=== PATIENT | male | born 1965 | race Caucasian/White ===

== ENCOUNTER 2018-01-26 11:54 | Emergency (ER) | payer OTHER ==
[~2018-01-26] VITALS: Ht 185.4 cm; Wt 99.1 kg
[2018-01-26 11:57] VITALS: Ht 185.4 cm; Wt 99.1 kg
[2018-01-26] MEDS ORDERED: SOLARAZE100 GM TP (11:59)
[2018-01-26] MEDS ORDERED: ULTRAM50 MG PO (11:59)
[2018-01-26] MEDS ORDERED: ADVIL200 MG PO (12:00)
[2018-01-26 12:32] LABS: BASOPHILS 0.3 % (0-2); EOSINOPHILS 1.6 % (0-7); HEMATOCRIT 46.8 % (42.0-54.0); HEMOGLOBIN 16.3 g/dL (13.5-17.5); LYMPHOCYTES 25.3 % (15-50); MCH 31.3 pg (26.0-34.0); MCHC 34.8 g/dL (31.0-37.0); MEAN PLATELET VOLUME 9.9 fL (7.4-10.4); MONOCYTES 6.9 % (2-11); NEUTROPHILS 65.9 % (40-80); PLATELET COUNT 177 10x3/uL (130-400); WBC 9.5 10x3/uL (4.8-10.8)
[2018-01-26 12:53] LABS: ALBUMIN 4.1 g/dL (3.4-5.0); ALKALINE PHOSPHATASE 80 U/L (46-116); ALT (SGPT) 29 U/L (10-68); BILIRUBIN - TOTAL 0.31 mg/dL (0.2-1.3); CALC OSMOLALITY 279 mosm/kg (275-300); CALCIUM 8.8 mg/dL (8.5-10.1); CHLORIDE - SERUM 105 mmol/L (98-107); GLUCOSE 89 mg/dL (74-106); POTASSIUM - SERUM 4.1 mmol/L (3.5-5.1); PROTEIN - SERUM 7.4 g/dL (6.4-8.2); SODIUM 140 mmol/L (136-145); UREA NITROGEN 17 mg/dL (7-18); eGFR NON AFRICAN AMERICAN 83 mL/min (90-120)
[2018-01-26 13:05] LABS: CKMB 0.9 U/L (0.0-3.6); CREATINE KINASE 73 UL (21-232)
[2018-01-26 13:07] LABS: TROPONIN-I < 0.017 ng/mL (0.000-0.060)
[2018-01-26 13:33] LABS: APTT 31.9 SECONDS (22.8-39.4); INR 0.99 (0.85-1.17); PROTIME 12.7 SECONDS (11.6-15.0)
[2018-01-26] MEDS ORDERED: NORVASC5 MG PO (13:55)
[2018-01-26 14:49] VITALS: BP 126/74
== END 2018-01-26 14:51 | disposition home or self-care (01) ==
LOC: D.ER 11:54
PROVIDERS: Emergency Medicine
DX: R51 Headache (principal); I10 Essential (primary) hypertension; F17.200 Nicotine dependence, unspecified, uncomplicated; I45.10 Unspecified right bundle-branch block

== ENCOUNTER 2020-09-17 16:18 | Emergency (ER) | payer OTHER ==
[~2020-09-17] VITALS: Ht 185.4 cm; Wt 99.1 kg
[~2020-09-17 16:18] MED LIST: ADVIL200 MG PO; NORVASC5 MG PO; SOLARAZE100 GM TP; ULTRAM50 MG PO
[2020-09-17 16:34] VITALS: Ht 185.4 cm; Wt 99.1 kg
[2020-09-17 17:55] LABS: BASOPHILS 0.5 % (0-2); EOSINOPHILS 1.8 % (0-7); HEMOGLOBIN 15.3 g/dL (13.5-17.5); IMMATURE GRANULOCYTES 0.2 % (0-5); LYMPHOCYTE ABS# 2.51 10x3/uL (1.32-3.57); LYMPHOCYTES 30.2 % (15-50); MCH 30.5 pg (26.0-34.0); MCV 89.6 fL (80.0-100.0); MEAN PLATELET VOLUME 9.9 fL (7.4-10.4); MONOCYTES 9.2 % (2-11); NEUTROPHIL ABS# 4.82 10x3/uL (1.78-5.38); NEUTROPHILS 58.1 % (40-80); PLATELET COUNT 202 10x3/uL (130-400); RBC 5.02 10x6/uL (4.20-6.10); RDW 12.2 % (11.5-14.5); WBC 8.3 10x3/uL (4.8-10.8)
[2020-09-17 17:59] LABS: APTT 27.6 SECONDS (22.8-39.4); INR 0.93 (0.85-1.17); PROTIME 11.5 SECONDS (11.6-15.0)
[2020-09-17 18:00] LABS: CALC OSMOLALITY 284 mosm/kg (275-300); CALCIUM 9.1 mg/dL (8.5-10.1); CARBON DIOXIDE 30.9 mmol/L (21.0-32.0); CHLORIDE - SERUM 105 mmol/L (98-107); CREATININE - SERUM 1.2 mg/dL (0.6-1.3); GLUCOSE 86 mg/dL (74-106); POTASSIUM - SERUM 4.9 mmol/L (3.5-5.1); SODIUM 143 mmol/L (136-145); UREA NITROGEN 16 mg/dL (7-18); eGFR NON AFRICAN AMERICAN 66 mL/min (90-120)
[2020-09-17 18:15] LABS: ALKALINE PHOSPHATASE 115 U/L (30-120); ALT (SGPT) 72 U/L (10-68); BILIRUBIN - TOTAL 0.21 mg/dL (0.2-1.3); CKMB 0.8 U/L (0.0-3.6); CREATINE KINASE 65 UL (21-232); MAGNESIUM - SERUM 2.4 mg/dL (1.8-2.4); PROTEIN - SERUM 7.1 g/dL (6.4-8.2)
[2020-09-17 18:23] LABS: TROPONIN-I < 0.017 ng/mL (0.000-0.060)
[2020-09-17 19:58] VITALS: BP 139/79
== END 2020-09-17 20:28 | disposition home or self-care (01) ==
LOC: D.ER 16:18
PROVIDERS: Emergency Medicine
DX: R55 Syncope and collapse (principal); R11.0 Nausea

== ENCOUNTER 2020-11-26 12:36 | Emergency (ER) | payer OTHER ==
[~2020-11-26] VITALS: Ht 185.4 cm; Wt 104.5 kg
[2020-11-26 12:39] VITALS: Ht 185.4 cm; Wt 104.5 kg
[2020-11-26 13:35] LABS: ANION GAP 12.9 mmol/L (8-16); CALCIUM 8.9 mg/dL (8.5-10.1); CARBON DIOXIDE 25.8 mmol/L (21.0-32.0); CREATININE - SERUM 1.3 mg/dL (0.6-1.3); POTASSIUM - SERUM 3.7 mmol/L (3.5-5.1)
[2020-11-26 13:41] LABS: ALBUMIN 3.9 g/dL (3.4-5.0); BILIRUBIN - TOTAL 0.25 mg/dL (0.2-1.3); PROTEIN - SERUM 7.3 g/dL (6.4-8.2)
[2020-11-26 14:38] LABS: BASOPHILS 0.4 % (0-2); HEMATOCRIT 39.7 % (42.0-54.0); HEMOGLOBIN 13.7 g/dL (13.5-17.5); LYMPHOCYTES 26.7 % (15-50); MCH 31.2 pg (26.0-34.0); MCHC 34.5 g/dL (31.0-37.0); MCV 90.3 fL (80.0-100.0); MEAN PLATELET VOLUME 8.8 fL (7.4-10.4); MONOCYTES 6.3 % (2-11); NEUTROPHILS 65.6 % (40-80); PLATELET COUNT 207 10x3/uL (130-400); RBC 4.39 10x6/uL (4.20-6.10); RDW 12.6 % (11.5-14.5); WBC 7.3 10x3/uL (4.8-10.8)
[2020-11-26 17:27] LABS: BILIRUBIN NEGATIVE (NEGATIVE); KETONE NEGATIVE mg/dL (< 1+); NITRITE NEGATIVE (NEGATIVE); UROBILINOGEN NORMAL mg/dL (< 2)
[2020-11-26] MEDS ORDERED: HYDROCODON-ACE1 EAC7 PO (17:39)
[2020-11-26] MEDS ORDERED: ANUSOL-HC 2.5%30 GM RC (17:39)
[2020-11-26 19:14] VITALS: BP 148/89
== END 2020-11-26 18:40 | disposition home or self-care (01) ==
LOC: D.ER 12:36
PROVIDERS: Family Medicine
DX: K60.2 Anal fissure, unspecified (principal); R73.9 Hyperglycemia, unspecified; R60.9 Edema, unspecified; K62.5 Hemorrhage of anus and rectum; I10 Essential (primary) hypertension